=== PATIENT | male | born 1985 | race Caucasian/White ===

== ENCOUNTER → 2016-12-03 15:28 | Outpatient (CLI) | payer BC | END | disposition home or self-care (01) | LOC: D.US 15:28 | DX: N50.819 Testicular pain, unspecified (principal); N45.2 Orchitis ==

== ENCOUNTER → 2020-01-02 15:35 | Outpatient (CLI) | payer OTHER | END | disposition home or self-care (01) | LOC: D.MRI 15:35 | PROVIDERS: ATTEND Clinical Nurse Specialist Family Health | DX: M25.551 Pain in right hip (principal) ==

== ENCOUNTER → 2020-12-14 11:08 | Outpatient (CLI) | payer OTHER | END | disposition home or self-care (01) | LOC: D.CT 11:08 | PROVIDERS: ATTEND Nurse Practitioner | DX: R10.11 Right upper quadrant pain (principal) ==